=== PATIENT | female | born 1970 | race Caucasian/White ===

== ENCOUNTER 2019-02-03 19:51 | Emergency (ER) | payer OTHER ==
[~2019-02-03] VITALS: Ht 157.5 cm; Wt 55.5 kg
[2019-02-03 20:46] VITALS: BP 130/82
[2019-02-03] MEDS ORDERED: SODIUM CHLORIDE FLUSH 10 ML SYR IVF STA (20:56)
[2019-02-03 21:46] LABS: BASOPHILS % (AUTO) 0.3 % (0.0-2.0); EOSINOPHILS % (AUTO) 0.1 % (0.0-4.0); HEMATOCRIT 42.4 % (36-48); HEMOGLOBIN 14.1 g/dL (12.0-16.0); LYMPHOCYTES # (AUTO) 0.5 K/uL (2.5-16.5); MEAN CORPUSCULAR HEMOGLOBIN 29 pg (27-31); MEAN CORPUSCULAR HGB CONC 33 g/dL (33-37); MEAN CORPUSCULAR VOLUME 86.5 fL (80-94); MONOCYTES # (AUTO) 0.2 K/uL (0.8-1.0); MONOCYTES % (AUTO) 3.7 % (1.7-9.3); NEUTROPHILS # (AUTO) 3.9 K/uL (1.8-7.7); NEUTROPHILS % (AUTO) 84.9 % (42.2-75.2); PLATELET COUNT (AUTO) 272 K/uL (140-450); RED CELL DISTRIBUTION WIDTH 13.7 % (11.6-13.7); WHITE BLOOD COUNT (AUTO) 4.6 K/uL (4.8-10.8)
[2019-02-03] MEDS ORDERED: NACL 0.9% 1,000 ML IV ONE (22:00)
[2019-02-03 22:14] LABS: POTASSIUM 3.2 mmol/L (3.5-5.1)
[2019-02-03 22:15] LABS: ANION GAP 14.2 (8-16)
[2019-02-03 22:16] LABS: CREATININE 0.5 mg/dL (0.6-1.3); TOTAL BILIRUBIN 0.7 mg/dL (0.0-1.0)
[2019-02-03 22:17] LABS: ALBUMIN 4.3 g/dL (3.4-5.0)
[2019-02-03] MEDS ORDERED: KETOROLAC 15 MG/ML VIAL IVP ONE (22:30)
[2019-02-03] MEDS ORDERED: diphenhydrAMINE 50 MG/ML VIAL IVP ONE (22:30)
[2019-02-03] MEDS ORDERED: METOCLOPRAMIDE 10 MG/2 ML INJ VIAL IVP ONE (22:30)
[2019-02-03 23:25] LABS: APPEARANCE,URINE CLEAR (CLEAR); BILIRUBIN,URINE NEGATIVE (NEGATIVE); BLOOD, URINE TRACE-I (NEGATIVE); COLOR,URINE YELLOW (YELLOW); LEUKOCYTE ESTERASE ,URINE NEGATIVE (NEGATIVE); NITRITE, URINE NEGATIVE (NEGATIVE); PH,URINE 6.5 (5.0-9.0); UGLUCOSE NEGATIVE (NEGATIVE)
[2019-02-04 00:30] LABS: RBC,URINE 0-5 /HPF (0-5); WBC,URINE 0-5 /HPF (0-5)
[2019-02-04 01:25] VITALS: BP 105/60
== END 2019-02-04 01:25 | disposition home or self-care (01) ==
LOC: MED 19:51
DX: R11.2 Nausea with vomiting, unspecified (principal); T46.4X5A Adverse effect of angiotensin-converting-enzyme inhibitors, initial encounter; E87.1 Hypo-osmolality and hyponatremia; R51 Headache; F41.9 Anxiety disorder, unspecified; F32.9 Major depressive disorder, single episode, unspecified; I10 Essential (primary) hypertension; Z98.890 Other specified postprocedural states; Y92.89 Other specified places as the place of occurrence of the external cause
CPT/HCPCS: 36415; 71045; 80053; 81001; 82150; 83690; 84484; 85025; 93005; 96361; 96374; 96375; 99284; J1200; J1885; J2765; J7030; Q0092

== ENCOUNTER 2023-05-30 12:39 | Emergency (ER) | payer OTHER ==
[~2023-05-30] VITALS: Ht 157.5 cm; Wt 58.1 kg
[2023-05-30 12:48] VITALS: BP 136/88; PULSE 91; RESP 19; TEMP 98.2; O2SAT 99
[2023-05-30] MEDS ORDERED: DEXAMETHASONE 10 MG/ML VIAL IM ONE (13:00)
[2023-05-30] MEDS ORDERED: LIDOCAINE 5% 1 EA PATCH TP ONE (13:00)
[2023-05-30] MEDS ORDERED: methocarbamoL 500 MG TAB PO ONE (13:00)
[2023-05-30] MEDS ORDERED: KETOROLAC 30 MG/ML VIAL IM ONE (13:00)
[2023-05-30] MEDS ORDERED: ONDANSETRON 4 MG ODT PO ONE (13:20)
[2023-05-30] MEDS ORDERED: MORPHINE SULFATE 4 MG/ML SYR IM ONE (14:35)
[2023-05-30] MEDS ORDERED: METH-1681 PO (15:48)
[2023-05-30] MEDS ORDERED: IBUP-2213 PO (15:48)
[2023-05-30] MEDS ORDERED: LIDO1ADH38 TP (15:48)
[2023-05-30 16:38] VITALS: BP 126/71; PULSE 94; RESP 19; O2SAT 97
== END 2023-05-30 16:38 | disposition home or self-care (01) ==
LOC: MED 12:39
DX: M54.16 Radiculopathy, lumbar region (principal); Z79.899 Other long term (current) drug therapy
CPT/HCPCS: 96372; 99284; J1100; J1885; J2270; Q0162